=== PATIENT | female | born 1975 | race African-American/Black ===

== ENCOUNTER 2023-10-08 13:20 | Emergency (ER) | payer MEDICAID, SELFPAY ==
--- NOTE | ~2023-10-08 | XR_ITS ---
EXAMINATION: XR KNEE, LEFT CLINICAL INFORMATION: Atraumatic knee pain COMPARISON: None available. TECHNIQUE: Four views of the left knee. FINDINGS: There is moderate narrowing of the medial joint space with marginal spurring. Spurring off the lateral tibial plateau and lateral femoral condyle noted. No fracture, dislocation or destructive lesion. XR/XR knee LT 3V IMPRESSION: Degenerative changes noted but no acute findings.
--- NOTE | ~2023-10-08 | XR_ITS ---
EXAMINATION: XR FOOT, LEFT CLINICAL INFORMATION: Foot pain COMPARISON: None available. TECHNIQUE: AP, lateral, and oblique views of the left foot. FINDINGS: No fracture, dislocation or destructive lesion or erosive change. There is a prominent plantar heel spur as well as spurring along the posterior calcaneus. There is mild productive change along the dorsal midfoot and hindfoot. XR/XR foot LT min 3V IMPRESSION: No acute abnormalities. Degenerative changes are noted.
--- NOTE | ~2023-10-08 | XR_ITS ---
EXAMINATION: XR ANKLE, LEFT CLINICAL INFORMATION: Left ankle pain COMPARISON: None available. TECHNIQUE: AP, lateral, and mortise views of the left ankle. FINDINGS: There is no fracture, dislocation or destructive process. The mortise is intact. Mild diffuse soft tissue swelling noted. XR/XR ankle LT min 3V IMPRESSION: No fracture.
--- NOTE | 2023-10-08 14:25 | ED.LOWEXIN ---
HPI - Extremity Injury (Lower) General Chief Complaint: Extremity Injury, Lower Stated Complaint: swollen feet Time Seen by Provider: 10/08/23 18:44 Source: patient Mode of arrival: ambulatory Limitations: no limitations History of Present Illness HPI Narrative: Patient with chronic pain in left ankle for several months has seen [facility] was given her injections with partial relief no other joint pain Related Data Previous Rx's ?Medication ?Instructions ?Recorded ibuprofen 600 mg tablet 600 mg PO Q6H PRN fever or pain 10/08/23 #40 tabs prednisone 10 mg tablets in a dose 10 mg PO DIRECTED #48 ea 10/08/23 pack Allergies Allergy/AdvReac Type Severity Reaction Status Date / Time No Known Allergies Allergy Verified 10/08/23 14:34 Review of Systems Review of Systems: Yes all other systems are reviewed and are negative [facility] Social History Social History Advance Directives: No Advance Directives Information Provided: No Physical Exam Vital Signs: Vital Signs: Last Vital Signs Temp 97.8 F 10/08/23 18:32 Pulse 66 10/08/23 18:32 Resp 20 10/08/23 18:32 BP 119/61 10/08/23 18:32 Pulse Ox 99 10/08/23 18:32 O2 Del Method Room Air 10/08/23 18:32 BMI result Body Mass Index 41.1 Appearance: Alert. Oriented X3. No acute distress. CVS: Normal heart rate and rhythm. Pulses normal. Respiratory: No respiratory distress. Equal air entry bilateral, Abdomen: Soft and nontender. Bowel sounds are present, no mass palpable, no CVA tenderness Skin: Skin warm and dry. Normal skin color. Normal skin turgor. Extremities: No lower extremity edema. No calf tenderness left ankle diffuse tenderness of inferior extensive retinaculam neurovascular intact Neuro: Oriented X 3. No motor deficit. Course Course Course Narrative: RME:?48 yo female here for eval of swelling to left ankle/ lower leg x1 year, worsening over the last few days. Admits pain on bearing weight on LLE. Pain now traveling up unto her left knee. Endorses occasional numbness to the foot. Denies injury or trauma to the left lower extremity. Denies history of diabetes. Denies recent travel or long car rides. denies cardiac hx. labs, xrays ordered. Full HPI, ROS and PE to be performed by the primary ED provider. Medications Administered Discontinued Medications Generic Name Dose Route Start Last Admin Trade Name Bruce PRN Reason Stop Dose Admin Ibuprofen 600 mg 10/08/23 17:43 10/08/23 17:45 Ibuprofen 600 Mg Tablet PO 10/08/23 17:44 600 mg ONCE ONE Administration Medical Decision Making Medical Decision Making [facility] Narrative: Patient clinically with enthesopathy of the left ankle will give a course of prednisone and ibuprofen advised to follow with [facility] x-ray negative Lab Data [facility] Lab Attestation statement: I reviewed the patient's lab results. 10/08/23 15:15 10/08/23 15:15 Labs: Lab Results 10/08/23 Range/Units 15:15 WBC 6.2 (4.8-10.8) X10*3/uL RBC 4.57 (4.20-5.50) X10*6/uL Hgb 12.8 (12.0-16.0) g/dl Hct 36.9 L (37.0-47.0) % MCV 80.7 (80.0-98.0) fL MCH 28.0 (27.0-33.0) pg MCHC 34.7 (31.0-35.0) g/dl RDW 14.8 (11.0-16.0) % Plt Count 252 (160-400) X10*3/uL MPV 10.9 (9.4-12.3) fL Immature Gran % (Auto) 0.2 (0.0-0.4) % Neut % (Auto) 47.4 (45-73) % Lymph % (Auto) 38.8 (20-40) % [place] % (Auto) 9.6 (2-11) % Eos % (Auto) 3.4 (0-4) % Baso % (Auto) 0.6 (0-2) % Lymph # (Auto) 2.4 (1.2-4.9) X10*3/uL [place] # (Auto) 0.6 (0.1-1.2) X10*3/uL Eos # (Auto) 0.2 (0.0-0.4) X10*3/uL Baso # (Auto) 0.0 (0.0-0.2) X10*3/uL Abs Immat Gran (auto) 0.01 (0.00-0.03) X10*3/uL Absolute Neuts (auto) 3.0 (2.0-8.3) x10*3/uL Absolute Nucleated RBC 0.000 (0.0-0.012) X10*3/uL Nucleated RBC % (auto) 0.0 (0.0-0.2) /100WBC Sodium 139 (135-145) mmol/L Potassium 3.8 (3.3-5.1) mmol/L Chloride 109 H (96-108) mmol/L Carbon Dioxide 21 L (22-29) mmol/L Anion Gap 13 (12-20) BUN 11 (9-16) mg/dL Creatinine 0.72 (0.5-1.4) mg/dL Estim Creat Clear Calc 109.2 Estimated GFR > 60 Random Glucose 95 (60-115) mg/dL Calcium 8.4 (8.4-10.2) mg/dL Total Bilirubin 0.5 (0.0-1.0) mg/dL AST 12 (5-31) U/L ALT 10 (0-31) U/L Alkaline Phosphatase 75 (39-117) U/L Total Protein 6.8 (6.5-8.0) g/dL Albumin 3.8 (3.5-5.0) g/dL Independent Interpretation I performed an independent interpretation of an: Plain X-Ray Radiology Impression Discussion of test interpretation with radiology: I have reviewed the radiologist's reading. Discharge Plan Discharge Clinical Impression: Enthesopathy of left ankle Patient Disposition: Home, Self-Care Instructions: Tendinitis (ED) Additional Instructions: You have inflammation of the tendon of the left ankle Take prednisone as prescribed Continue ibuprofen for pain Follow-up with [facility] Prescriptions: New prednisone 10 mg tablets,dose pack 10 mg PO DIRECTED Qty: 48 0RF Rx Instructions: see taper instructions; 40 mg Daily x3 days, 30 mg daily x3 days, 20 mg daily x3 days, 10 mg daily x3 days ibuprofen 600 mg tablet 600 mg PO Q6H PRN (Reason: fever or pain) Qty: 40 0RF Print Language: Albanian
[2023-10-08 14:31] VITALS: BP 145/78; PULSE 70; RESP 16; TEMP 36.4; O2SAT 97; BMI 41.1
[2023-10-08 15:21] LABS: MANUAL DIFF FLAG NO
[2023-10-08 15:23] LABS: Basophils Percent Auto 0.6 % (0-2); Eosinophils Absolute Auto 0.2 X10*3/uL (0.0-0.4); Eosinophils Percent Auto 3.4 % (0-4); Hematocrit 36.9 % (37.0-47.0); Hemoglobin 12.8 g/dl (12.0-16.0); Imm Gran Abs Auto 0.01 X10*3/uL (0.00-0.03); Imm Gran Pct Auto 0.2 % (0.0-0.4); Lymphocytes Absolute Auto 2.4 X10*3/uL (1.2-4.9); Lymphocytes Percent Auto 38.8 % (20-40); Mean Corpuscular HGB Conc 34.7 g/dl (31.0-35.0); Mean Corpuscular Volume 80.7 fL (80.0-98.0); Mean Platelet Volume 10.9 fL (9.4-12.3); Monocytes Absolute Auto 0.6 X10*3/uL (0.1-1.2); Monocytes Percent Auto 9.6 % (2-11); Neutrophils Percent Auto 47.4 % (45-73); Platelet Count 252 X10*3/uL (160-400); Red Blood Count 4.57 X10*6/uL (4.20-5.50); Red Cell Distribution Width 14.8 % (11.0-16.0); White Blood Count 6.2 X10*3/uL (4.8-10.8)
[2023-10-08 16:48] LABS: Alanine Aminotransferase 10 U/L (0-31); Albumin Level 3.8 g/dL (3.5-5.0); Alkaline Phosphatase 75 U/L (39-117); Anion Gap 13 (12-20); Aspartate Amino Transferase 12 U/L (5-31); Bilirubin Total 0.5 mg/dL (0.0-1.0); Blood Urea Nitrogen 11 mg/dL (9-16); Calcium 8.4 mg/dL (8.4-10.2); Carbon Dioxide 21 mmol/L (22-29); Chloride 109 mmol/L (96-108); Creatinine Clr Calc Pharmacy 109.2; Estimated Glomerular Filt Rate > 60; Glucose Random 95 mg/dL (60-115); Potassium 3.8 mmol/L (3.3-5.1); Sodium 139 mmol/L (135-145); Total Protein 6.8 g/dL (6.5-8.0)
[2023-10-08 17:40] VITALS: BP 108/68; PULSE 72; RESP 16; TEMP 36.7; O2SAT 100
[2023-10-08] MEDS: Ibuprofen 600 MG TABLET PO (17:45)
[2023-10-08 18:32] VITALS: BP 119/61; PULSE 66; RESP 20; TEMP 36.6; O2SAT 99
[2023-10-08] MEDS: dexAMETHasone 2 MG TABLET 10 MG PO (19:18)
[2023-10-08] MEDS: traMADoL HCL 50 MG TABLET PO (19:18)
[2023-10-08 19:23] VITALS: BP 119/61; PULSE 66; RESP 20; TEMP 36.6; O2SAT 99
== END 2023-10-08 19:25 | disposition home or self-care (01) ==
PROVIDERS: Physician Assistant Medical; Emergency Provider Internal Medicine
DX: R60.0 Localized edema (principal); M25.572 Pain in left ankle and joints of left foot; M25.562 Pain in left knee; Z79.899 Other long term (current) drug therapy
CPT/HCPCS: 36415; 73562; 73610; 73630; 80053; 85025; 99283; J8540

== ENCOUNTER 2024-01-08 10:49 | Emergency (ER) | payer MEDICAID, SELFPAY ==
[2024-01-08 10:54] VITALS: BP 153/105; PULSE 86; RESP 16; TEMP 36.9; O2SAT 98; BMI 33.5
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
[2024-01-08] MEDS: Bacitracin Oint 0.9 GM PACKET 1 APPL TOPICAL (13:01)
--- NOTE | 2024-01-08 13:02 | PC.NURSE ---
pt was evaluated by triage provider and medicated as charted, pt agrees to discharge care plan
[2024-01-08 13:07] VITALS: BP 153/105; PULSE 86; RESP 16; TEMP 36.9; O2SAT 98
== END 2024-01-08 13:08 | disposition home or self-care (01) ==
PROVIDERS: Emergency Provider Emergency Medicine
DX: T20.29XA Burn of second degree of multiple sites of head, face, and neck, initial encounter (principal); T31.0 Burns involving less than 10% of body surface; X10.2XXA Contact with fats and cooking oils, initial encounter; Y93.G3 Activity, cooking and baking; Y92.000 Kitchen of unspecified non-institutional (private) residence as the place of occurrence of the external cause; Y99.9 Unspecified external cause status
CPT/HCPCS: 16000; 99282; 99283